=== PATIENT | male | born 1970 ===

== ENCOUNTER 2019-03-19 10:01 | Emergency (ER) | payer BC ==
[2019-03-19 10:12] VITALS: BP 152/98
--- NOTE | 2019-03-19 10:12 | UC ---
Eye Complaint HPI - HPI Summary HPI Summary: 48 yo male presents with LEFT eye complaint. He tells me that last night he noticed his left eye was a little itchy. This morning he woke up and his left eye was red, crusted with yellow drainage, and still itchy. He is concerned there is an infection. He denies injury. Does not wear glasses or contacts - History of Current Complaint Stated Complaint: EYE COMPLAINT Time Seen by Provider: 03/19/19 10:11 Hx Obtained From: Patient - Allergies/Home Medications Allergies/Adverse Reactions: Allergies Allergy/AdvReac Type Severity Reaction Status Date / Time No Known Allergies Allergy Verified 03/19/19 10:12 Home Medications: Home Medications ZyrTEC 10 MG TAB* 1 tab PO DAILY 03/19/19 [History Confirmed 03/19/19] Review of Systems All Other Systems Reviewed And Are Negative: No Constitutional: Positive: Negative Skin: Positive: Negative Eyes: Positive: Drainage, Eye Redness ENT: Positive: Negative Respiratory: Positive: Negative Cardiovascular: Positive: Negative Neurological: Positive: Negative Psychological: Positive: Negative Physical Exam - Summary Physical Exam Summary: GENERAL: WDWN. No pain distress. SKIN: No rashes, sores, lesions, or open wounds. HEENT: Head: AT/NC Eyes: EOM intact. PERRLA. LEFT EYE: Mild scleral injection. Conjunctiva with mild erythema and inflammation. Mild yellow discharge. RIGHT EYE: Conjunctiva clear without inflammation or discharge. No FBs appreciated Nose: NTTP maxillary and frontal sinus. NECK: Supple. Nontender. No lymphadenopathy. CHEST: No accessory muscle use. Breathing comfortably and in no distress. CV: Pulses intact. Cap refill <2seconds NEURO: Alert. PSYCH: Age appropriate behavior. Triage Information Reviewed: Yes Vital Signs: Initial Vital Signs Temp 98.8 F 03/19/19 10:10 Pulse 85 03/19/19 10:10 Resp 16 03/19/19 10:10 BP 152/98 03/19/19 10:10 Pulse Ox 100 03/19/19 10:10 Vital Signs Reviewed: Yes Eye Complaint Course/Dx - Course Course Of Treatment: Left conjunctivitis - Differential Dx/Diagnosis Provider Diagnosis: Conjunctivitis Discharge ED - Sign-Out/Discharge Documenting (check all that apply): Patient Departure All imaging exams completed and their final reports reviewed: No Studies - Discharge Plan Condition: Stable Disposition: HOME Prescriptions: Ofloxacin 0.3% (Eye Drop) [Ocuflox OPTH 0.3% (Eye Drop)] 1 drop LEFT EYE QID #1 btl Patient Education Materials: Conjunctivitis (ED) Referrals: No Primary Care Phys,NOPCP [Primary Care Provider] - Additional Instructions: If you develop a fever, shortness of breath, chest pain, new or worsening symptoms - please call your PCP or go to the ED immediately. Your blood pressure was high at todays visit. Please see your primary provider within 4 weeks for recheck and re-evaluation. - Billing Disposition and Condition Condition: STABLE Disposition: Home
== END 2019-03-19 10:24 | disposition home or self-care (01) ==
LOC: UCEAST 10:01
DX: H10.9 Unspecified conjunctivitis (principal)
CPT/HCPCS: 99212; G0463